=== PATIENT | male | born 1965 | race Two or more races ===

== ENCOUNTER 2018-08-16 08:19 | Day surgery (SDC) | payer OTHER | END 2018-08-16 13:00 | disposition home or self-care (01) | LOC: AMB-ENDOS 08:19 → CIR.AMB 12:15 → AMB-ENDOS 12:15 | DX: K57.32 Diverticulitis of large intestine without perforation or abscess without bleeding (principal); K64.1 Second degree hemorrhoids ==

== ENCOUNTER 2022-09-27 09:00 | Inpatient (IN) | payer OTHER ==
[~2022-09-27] VITALS: Ht 152.4 cm; Wt 911.7 kg
[2022-09-27] MEDS ORDERED: TENORMIN25 MG PO (11:04)
[2022-09-27] MEDS ORDERED: SEROQ PO (11:05)
[2022-09-27] MEDS ORDERED: CLONAZEPAM2 MG PO (11:05)
[2022-09-27] MEDS ORDERED: ZESTRIL40 M1 PO (11:05)
[2022-09-27] MEDS ORDERED: ZOLOFT100 MG PO (11:06)
[2022-09-27] MEDS ORDERED: [UNRECOGNIZED DRUG - REMARK] PO (11:06)
[2022-10-09] MEDS ORDERED: GABAPENTIN600 MG (08:54)
[2022-10-09] MEDS ORDERED: ALLOPURINOL100 MG (08:54)
[2022-10-09] MEDS ORDERED: LISINOPRIL-HCT1 EACH (08:55)
[2022-10-09] MEDS ORDERED: SYNTHROID112 MCG (08:55)
[2022-10-09] MEDS ORDERED: QUETIAPINE FUM100 MG (08:55)
[2022-10-09] MEDS ORDERED: FOLIC ACID1 MG (08:55)
[2022-10-09] MEDS ORDERED: FERROUS SULFAT325 MG (08:55)
[2022-10-09] MEDS ORDERED: VITAMIN B-121000 MCG (08:55)
[2022-11-19] MEDS ORDERED: GABAPENTIN300 MG PO (10:11)
[2022-11-19] MEDS ORDERED: ATENOLOL25 MG PO (10:11)
[2022-11-19] MEDS ORDERED: INTESTINEX680 M1 PO (10:11)
[2022-11-19] MEDS ORDERED: PANTOPRAZOLE SO40 MG PO (10:12)
[2022-11-19] MEDS ORDERED: INTEGRA F CAPS1 EACH PO (10:13)
[2022-11-19] MEDS ORDERED: LEVOTHYROXINE112 MCG PO (10:13)
== END 2022-11-20 17:08 | disposition home or self-care (01) | DRG 329 ==
LOC: SURG 10-03 07:00 → SURH 10-03 07:30 → O/R 10-03 07:30 → ICU 10-03 07:30 → SURG 10-03 09:00 → SURH 10-03 17:38 → O/R 10-12 10:57 → ICU 10-13 05:26 → SURH 11-01 18:23
PROVIDERS: ADMIT Colon & Rectal Surgery; ATTEND Colon & Rectal Surgery
PROC: 0DBP4ZZ Excision of Rectum, Percutaneous Endoscopic Approach (ICD-10-PCS; 2022-10-03)
PROC: 0DB84ZZ Excision of Small Intestine, Percutaneous Endoscopic Approach (ICD-10-PCS; 2022-10-03)
PROC: 07BB4ZZ Excision of Mesenteric Lymphatic, Percutaneous Endoscopic Approach (ICD-10-PCS; 2022-10-03)
PROC: 07BC4ZZ Excision of Pelvis Lymphatic, Percutaneous Endoscopic Approach (ICD-10-PCS; 2022-10-03)
PROC: 0DBM4ZZ Excision of Descending Colon, Percutaneous Endoscopic Approach (ICD-10-PCS; 2022-10-03)
PROC: 0DQM4ZZ Repair Descending Colon, Percutaneous Endoscopic Approach (ICD-10-PCS; 2022-10-03)
PROC: 0TQB4ZZ Repair Bladder, Percutaneous Endoscopic Approach (ICD-10-PCS; 2022-10-03)
PROC: 0WQF4ZZ Repair Abdominal Wall, Percutaneous Endoscopic Approach (ICD-10-PCS; 2022-10-03)
PROC: 0DJD8ZZ Inspection of Lower Intestinal Tract, Via Natural or Artificial Opening Endoscopic (ICD-10-PCS; 2022-10-03)
PROC: 0DTN4ZZ Resection of Sigmoid Colon, Percutaneous Endoscopic Approach (ICD-10-PCS; principal; 2022-10-03 07:00)
PROC: 4A12X4Z Monitoring of Cardiac Electrical Activity, External Approach (ICD-10-PCS; 2022-10-06)
PROC: BT1BZZZ Fluoroscopy of Bladder and Urethra (ICD-10-PCS; 2022-10-06)
PROC: 02HV33Z Insertion of Infusion Device into Superior Vena Cava, Percutaneous Approach (ICD-10-PCS; 2022-10-07)
PROC: BW211ZZ Computerized Tomography (CT Scan) of Abdomen and Pelvis using Low Osmolar Contrast (ICD-10-PCS; 2022-10-07)
PROC: 3E0536Z Introduction of Nutritional Substance into Peripheral Artery, Percutaneous Approach (ICD-10-PCS; 2022-10-10)
PROC: 0D1L074 Bypass Transverse Colon to Cutaneous with Autologous Tissue Substitute, Open Approach (ICD-10-PCS; 2022-10-11)
PROC: 5A1955Z Respiratory Ventilation, Greater than 96 Consecutive Hours (ICD-10-PCS; 2022-10-11)
PROC: 30233N1 Transfusion of Nonautologous Red Blood Cells into Peripheral Vein, Percutaneous Approach (ICD-10-PCS; 2022-10-15)
PROC: BW24ZZZ Computerized Tomography (CT Scan) of Chest and Abdomen (ICD-10-PCS; 2022-10-15)
PROC: BW211ZZ Computerized Tomography (CT Scan) of Abdomen and Pelvis using Low Osmolar Contrast (ICD-10-PCS; 2022-10-16)
PROC: 0T9130Z Drainage of Left Kidney with Drainage Device, Percutaneous Approach (ICD-10-PCS; 2022-10-18)
PROC: 0T9030Z Drainage of Right Kidney with Drainage Device, Percutaneous Approach (ICD-10-PCS; 2022-10-18)
PROC: BW2110Z Computerized Tomography (CT Scan) of Abdomen and Pelvis using Low Osmolar Contrast, Unenhanced and Enhanced (ICD-10-PCS; 2022-10-26)
PROC: 0JB70ZZ Excision of Back Subcutaneous Tissue and Fascia, Open Approach (ICD-10-PCS; 2022-11-03)
PROC: 0JB70ZZ Excision of Back Subcutaneous Tissue and Fascia, Open Approach (ICD-10-PCS; 2022-11-08)
PROC: BW211ZZ Computerized Tomography (CT Scan) of Abdomen and Pelvis using Low Osmolar Contrast (ICD-10-PCS; 2022-11-08)
PROC: 0T9130Z Drainage of Left Kidney with Drainage Device, Percutaneous Approach (ICD-10-PCS; 2022-11-14)
PROC: 0T9030Z Drainage of Right Kidney with Drainage Device, Percutaneous Approach (ICD-10-PCS; 2022-11-14)
PROC: 0JB70ZZ Excision of Back Subcutaneous Tissue and Fascia, Open Approach (ICD-10-PCS; 2022-11-15)
DX: C20 Malignant neoplasm of rectum (principal); J15.1 Pneumonia due to Pseudomonas; L89.154 Pressure ulcer of sacral region, stage 4; J95.821 Acute postprocedural respiratory failure; K56.2 Volvulus; K65.1 Peritoneal abscess; K91.89 Other postprocedural complications and disorders of digestive system; N17.9 Acute kidney failure, unspecified; N32.1 Vesicointestinal fistula; K57.20 Diverticulitis of large intestine with perforation and abscess without bleeding; Z16.24 Resistance to multiple antibiotics; K91.71 Accidental puncture and laceration of a digestive system organ or structure during a digestive system procedure; B96.1 Klebsiella pneumoniae [K. pneumoniae] as the cause of diseases classified elsewhere; N39.498 Other specified urinary incontinence; T83.022A Displacement of nephrostomy catheter, initial encounter; N13.9 Obstructive and reflux uropathy, unspecified; R35.89 Other polyuria; L89.152 Pressure ulcer of sacral region, stage 2; I10 Essential (primary) hypertension; E03.9 Hypothyroidism, unspecified; Z43.3 Encounter for attention to colostomy

== ENCOUNTER 2022-11-29 18:00 | Inpatient (IN) | payer OTHER ==
[~2022-11-29] VITALS: Ht 165.1 cm; Wt 95.3 kg
[~2022-11-29 18:00] MED LIST: ALLOPURINOL100 MG; ATENOLOL25 MG PO; CLONAZEPAM2 MG PO; FERROUS SULFAT325 MG; FOLIC ACID1 MG; GABAPENTIN300 MG PO; GABAPENTIN600 MG; INTEGRA F CAPS1 EACH PO; INTESTINEX680 M1 PO; LEVOTHYROXINE112 MCG PO; LISINOPRIL-HCT1 EACH; PANTOPRAZOLE SO40 MG PO; QUETIAPINE FUM100 MG; SEROQ PO; SYNTHROID112 MCG; TENORMIN25 MG PO; VITAMIN B-121000 MCG; ZESTRIL40 M1 PO; ZOLOFT100 MG PO; [UNRECOGNIZED DRUG - REMARK] PO
[2022-11-30] MEDS ORDERED: ABATINEX680 MG (15:01)
[2022-11-30] MEDS ORDERED: FOLIC ACID1 MG (15:01)
[2022-11-30] MEDS ORDERED: GABAPENTIN300 M2 (15:01)
[2022-11-30] MEDS ORDERED: PANTOPRAZOLE SO40 MG (15:01)
[2022-11-30] MEDS ORDERED: LEVOTHYROXINE112 MCG (15:01)
[2022-11-30] MEDS ORDERED: QUETIAPINE FUM100 MG (15:01)
[2022-11-30] MEDS ORDERED: FERROUS SULFAT325 MG (15:01)
[2022-11-30] MEDS ORDERED: SERTRALINE HCL100 MG (15:01)
[2022-11-30] MEDS ORDERED: VITAMIN B-121000 MCG (15:01)
[2022-11-30] MEDS ORDERED: CLONAZEPAM1 MG (15:01)
[2022-11-30] MEDS ORDERED: ALLOPURINOL100 MG (15:01)
[2022-12-18] MEDS ORDERED: ZESTRIL40 M1 PO (14:02)
[2022-12-18] MEDS ORDERED: QUETIAPINE FUM100 MG PO (14:03)
[2022-12-18] MEDS ORDERED: CLONAZEPAM1 MG PO (14:03)
[2022-12-18] MEDS ORDERED: TENORMIN25 MG PO (14:03)
[2022-12-18] MEDS ORDERED: LEVOTHYROXINE112 MCG PO (14:04)
[2022-12-18] MEDS ORDERED: ALLOPURINOL100 MG PO (14:04)
== END 2022-12-18 18:28 | disposition home or self-care (01) | DRG 871 ==
LOC: ER 18:00 → MEDI 11-30 14:41
PROVIDERS: ADMIT Internal Medicine; ATTEND Internal Medicine
PROC: 0HD6XZZ Extraction of Back Skin, External Approach (ICD-10-PCS; principal; 2022-12-01)
PROC: 0HD6XZZ Extraction of Back Skin, External Approach (ICD-10-PCS; 2022-12-06)
PROC: 2W15X6Z Compression of Back using Pressure Dressing (ICD-10-PCS; 2022-12-06)
PROC: 0JB73ZZ Excision of Back Subcutaneous Tissue and Fascia, Percutaneous Approach (ICD-10-PCS; 2022-12-13)
DX: A41.9 Sepsis, unspecified organism (principal); L89.154 Pressure ulcer of sacral region, stage 4; N39.0 Urinary tract infection, site not specified; L08.9 Local infection of the skin and subcutaneous tissue, unspecified; B95.2 Enterococcus as the cause of diseases classified elsewhere; B96.89 Other specified bacterial agents as the cause of diseases classified elsewhere; Z20.822 Contact with and (suspected) exposure to COVID-19; E03.9 Hypothyroidism, unspecified; I10 Essential (primary) hypertension; Z74.01 Bed confinement status; Z93.6 Other artificial openings of urinary tract status

== ENCOUNTER 2023-02-28 08:24 | Outpatient (CLI) | payer OTHER ==
[~2023-02-28 08:24] MED LIST changes: +ABATINEX680 MG; +ALLOPURINOL100 MG PO; +CLONAZEPAM1 MG; +CLONAZEPAM1 MG PO; +GABAPENTIN300 M2; +LEVOTHYROXINE112 MCG; +PANTOPRAZOLE SO40 MG; +QUETIAPINE FUM100 MG PO; +SERTRALINE HCL100 MG
== END 2023-02-28 08:32 | disposition home or self-care (01) ==
LOC: RX STUDY 08:24
PROVIDERS: ATTEND Colon & Rectal Surgery
DX: K57.20 Diverticulitis of large intestine with perforation and abscess without bleeding (principal); N32.1 Vesicointestinal fistula
CPT/HCPCS: 74220; 74430; A9698

== ENCOUNTER 2023-07-11 08:48 | Outpatient (CLI) | payer OTHER | END 2023-07-11 08:58 | disposition home or self-care (01) | LOC: TOM 08:48 | PROVIDERS: ATTEND Colon & Rectal Surgery | DX: K57.20 Diverticulitis of large intestine with perforation and abscess without bleeding (principal); C20 Malignant neoplasm of rectum ==

== ENCOUNTER 2025-01-14 16:33 | Inpatient (IN) | payer OTHER ==
[~2025-01-14] VITALS: Ht 172.7 cm; Wt 99.8 kg
[~2025-01-14 16:33] MED LIST changes: +GRALISE600 MG; +ZESTRIL2.5 MG
--- NOTE | 2025-01-14 16:41 | NUR ---
SE RECIBE PTE EN AMBULANCIA ALERTA Y ORIENTADO X3, REFIERE DOLOR ABDOMINAL Y ARDOR AL ORINAR. REFIERE TIENE CORTNEY FISTULA ABDOMINAL. PTE DEL .SE SANDRA DINO Y SE UBICA
[2025-01-14] MEDS ORDERED: FAMOTIDINE/PF 20 MG/2 ML VIAL IV ONE (17:30)
[2025-01-14] MEDS ORDERED: ONDANSETRON HCL 2 MG/ML VIAL IV ONE (17:30)
[2025-01-14] MEDS ORDERED: 0.9 % SODIUM CHLORIDE 500 ML IV ONE (17:30)
--- NOTE | 2025-01-14 18:16 | NUR ---
SE ORIENTA A PACIENTE SOBRE TX MEDICO, REFIERE ENTENDER. SE REALIZAN MUESTRAS DE LABORATORIO BAJO MEDIDAS ASEPTICAS. SE ADMINISTRAN MEDICAMENTOS TOMASA ORDEN MEDICA. SE COORDINA CT. PENDIENTE RE-EVALUACION MEDICA.
[2025-01-14 18:19] LABS: BASO % 0.2 % (0.1-1.2); EOS # 0.01 (0.04-0.54); EOS % 0.1 % (0.7-7.0); LYMPH # 1.12 (1.18-3.74); LYMPH % 6.2 % (19.3-53.1); MEAN PLATELET VOLUME 9.30 fl (9.4-12.4); MONO # 1.58 (0.24-0.82); MONO % 8.8 % (4.7-12.5); NEUT # 15.01 (1.56-6.13); NEUT % 83.1 % (34.0-71.1); RED CELL DISTRIBUTION WIDTH 13.0 % (11.6-14.4)
[2025-01-14 18:43] LABS: ALT/SGPT 22.0 U/L (12-78); AST/SGOT 11.0 U/L (15-37); BILIRUBIN TOTAL 0.61 mg/dL (0.3-1.2); BUN CREA RATIO 26.0 (7.0-25.0); CREATININE SERUM 1.22 mg/dL (0.70-1.30); GFR 60.8; GLOBULINA 4.8 G/DL (2.4-3.5); GLUCOSE FASTING 130.0 mg/dL (65-100); OSMOLALITY SERUM 277.0 MOSM/KG (275-295)
[2025-01-14] MEDS ORDERED: PIPERACILLIN/TAZOBACTAM SODIUM 3.375 GM VIAL IV ONE (19:45)
[2025-01-14] MEDS ORDERED: FAMOTIDINE/PF 20 MG in 0.9 % SODIUM CHLORIDE 8 ML IV PUSH SCH (20:21)
--- NOTE | 2025-01-14 20:29 | NUR ---
SE ORIENTA PTE SOBRE INSERCION DE NGT EL CUAL SE REALIZA BAJO MEDIDAS ASEPTICAS EN YONY RT SE CONECTA @ LIS,SE OBSERVAN RESIDUOS DE COMIDA,SE RE-CANALIZA PTE.SE RANDALL BAJO OBSERVACION POR CAMBIOS.
[2025-01-14] MEDS ORDERED: MORPHINE SULFATE 4 MG/ML CARTRIDGE IV PRN (20:30)
[2025-01-14] MEDS ORDERED: ONDANSETRON HCL 4 MG in 0.9 % SODIUM CHLORIDE 50 ML IV PRN (20:30)
[2025-01-14] MEDS ORDERED: 0.9 % SODIUM CHLORIDE 1,000 ML IV SCH (20:30)
[2025-01-14] MEDS ORDERED: ENALAPRILAT DIHYDRATE 1.25 MG/ML VIAL IV PRN (20:30)
[2025-01-14 22:25] LABS: INR 1.1
[2025-01-14 22:58] LABS: URINE APPEARANCE Cloudy; URINE BILIRRUBIN Negative (NEGATIVE); URINE BLOOD Small; URINE COLOR Yellow; URINE GLUCOSE Negative (NEGATIVE); URINE KETONE Negative (NEGATIVE); URINE LEUKOCYTE Large; URINE NITRATE Positive; URINE PROTEIN 30 (NEGATIVE); URINE UROBILINOGEN 0.2 E.U./dl
[2025-01-14 23:01] LABS: URINE BACTERIA 1735.0 uL (0.0-1933); URINE EPITHELIAL CELLS 3.5 uL (0.0-38.8); URINE RBC 2.0 uL (0.0-20.8); URINE WBC 2758.8 uL (0.0-23.2)
[2025-01-14 23:05] LABS: URINE CAST 0.58 uL (0.0-1.40)
[2025-01-15] MEDS ORDERED: PIPERACILLIN/TAZOBACTAM SODIUM 3.375 GM in DEXTROSE 5 % IN WATER 100 ML IV SCH
[2025-01-15 08:44] VITALS: BP 108/74; O2SAT 97
[2025-01-15 16:00] VITALS: BP 118/67; O2SAT 96
[2025-01-16 00:52] VITALS: BP 123/76; O2SAT 96
[2025-01-16 07:32] LABS: BASO % 0.6 % (0.1-1.2); EOS # 0.06 (0.04-0.54); EOS % 0.3 % (0.7-7.0); LYMPH # 1.21 (1.18-3.74); LYMPH % 6.9 % (19.3-53.1); MEAN PLATELET VOLUME 9.50 fl (9.4-12.4); MONO # 1.92 (0.24-0.82); MONO % 10.9 % (4.7-12.5); NEUT # 13.77 (1.56-6.13); NEUT % 78.1 % (34.0-71.1); RED CELL DISTRIBUTION WIDTH 13.4 % (11.6-14.4)
[2025-01-16 07:58] LABS: ALT/SGPT 19.0 U/L (12-78); AST/SGOT 13.0 U/L (15-37); BILIRUBIN TOTAL 0.98 mg/dL (0.3-1.2); BUN CREA RATIO 21.0 (7.0-25.0); CREATININE SERUM 0.96 mg/dL (0.70-1.30); GFR 80.17; GLOBULINA 3.7 G/DL (2.4-3.5); GLUCOSE FASTING 104.0 mg/dL (65-100); OSMOLALITY SERUM 284.0 MOSM/KG (275-295)
[2025-01-16 08:37] VITALS: BP 115/79; O2SAT 95
[2025-01-16] MEDS ORDERED: levoFLOXacin IN DEXTROSE 5 % 150 ML IV SCH (12:00)
[2025-01-16 17:38] VITALS: BP 116/70; O2SAT 96
[2025-01-17 01:48] VITALS: BP 106/72; O2SAT 97
[2025-01-17 08:17] VITALS: BP 137/86; O2SAT 94
[2025-01-17] MEDS ORDERED: DIATRIZOATE MEGLUMINE, SODIUM 30 ML BOTTLE PO NR (10:30)
[2025-01-17 16:00] VITALS: BP 121/79; O2SAT 96
[2025-01-18 00:57] VITALS: BP 126/81; O2SAT 97
[2025-01-18] MEDS ORDERED: MORPHINE SULFATE 4 MG/ML CARTRIDGE IV PRN (01:30)
[2025-01-18 08:00] VITALS: BP 128/79; O2SAT 98
[2025-01-18 16:00] VITALS: BP 149/90; O2SAT 95
[2025-01-19] VITALS: BP 127/72; O2SAT 95
[2025-01-19 06:32] LABS: BASO % 0.6 % (0.1-1.2); EOS # 0.04 (0.04-0.54); EOS % 0.3 % (0.7-7.0); LYMPH # 1.22 (1.18-3.74); LYMPH % 10.6 % (19.3-53.1); MEAN PLATELET VOLUME 9.50 fl (9.4-12.4); MONO # 0.73 (0.24-0.82); MONO % 6.3 % (4.7-12.5); NEUT # 9.09 (1.56-6.13); NEUT % 78.7 % (34.0-71.1); RED CELL DISTRIBUTION WIDTH 13.4 % (11.6-14.4)
[2025-01-19 07:05] LABS: BUN CREA RATIO 23.0 (7.0-25.0); CREATININE SERUM 0.8 mg/dL (0.70-1.30); GFR 98.94; GLUCOSE FASTING 80.0 mg/dL (65-100); OSMOLALITY SERUM 288.0 MOSM/KG (275-295)
[2025-01-19 07:36] LABS: LYMPHOCYTE MAN 20.0 %; MONOCYTE MAN 1.0 %; NEUTROPHILS MAN 76.0 %
[2025-01-19 08:00] VITALS: BP 135/89; O2SAT 97
[2025-01-19 16:00] VITALS: BP 121/73; O2SAT 97
[2025-01-19] MEDS ORDERED: POTASSIUM PHOS,M-BASIC-D-BASIC 15 MM in 0.9 % SODIUM CHLORIDE 250 ML IV NR (18:00)
[2025-01-19] MEDS ORDERED: MIDAZOLAM HCL 2 MG/2 ML VIAL IV PUSH ONE (18:15)
[2025-01-19] MEDS ORDERED: fentaNYL CITRATE 50 MCG/ML AMPUL IV PUSH ONE (18:15)
[2025-01-20 01:25] VITALS: BP 114/80; O2SAT 97
[2025-01-20 08:00] VITALS: BP 135/87; O2SAT 96
[2025-01-20 17:16] VITALS: BP 150/97; O2SAT 97
[2025-01-21 02:10] VITALS: BP 137/85; O2SAT 97
[2025-01-21 08:00] VITALS: BP 144/94; O2SAT 96
[2025-01-21 17:28] VITALS: BP 131/83; O2SAT 99
[2025-01-22 01:30] VITALS: BP 135/89; O2SAT 97
[2025-01-22 07:26] LABS: BASO % 0.4 % (0.1-1.2); EOS # 0.07 (0.04-0.54); EOS % 0.5 % (0.7-7.0); LYMPH # 1.44 (1.18-3.74); LYMPH % 11.2 % (19.3-53.1); MEAN PLATELET VOLUME 9.10 fl (9.4-12.4); MONO # 0.94 (0.24-0.82); MONO % 7.3 % (4.7-12.5); NEUT # 10.10 (1.56-6.13); NEUT % 78.6 % (34.0-71.1); RED CELL DISTRIBUTION WIDTH 13.1 % (11.6-14.4)
[2025-01-22 08:00] VITALS: BP 118/79; O2SAT 96
[2025-01-22 08:10] LABS: ALT/SGPT 36.0 U/L (12-78); AST/SGOT 24.0 U/L (15-37); BILIRUBIN TOTAL 0.46 mg/dL (0.3-1.2); BUN CREA RATIO 12.0 (7.0-25.0); CREATININE SERUM 0.84 mg/dL (0.70-1.30); GFR 93.52; GLOBULINA 4.3 G/DL (2.4-3.5); GLUCOSE FASTING 118.0 mg/dL (65-100); OSMOLALITY SERUM 278.0 MOSM/KG (275-295)
[2025-01-22] MEDS ORDERED: PIPERACILLIN/TAZOBACTAM SODIUM 4.5 GM VIAL IV SCH (17:00)
[2025-01-22 18:12] VITALS: BP 133/85; O2SAT 97
[2025-01-23 02:15] VITALS: BP 137/80; O2SAT 97
[2025-01-23 07:00] VITALS: BP 122/85; O2SAT 97
[2025-01-23 16:00] VITALS: BP 121/78; O2SAT 96
[2025-01-24 01:53] VITALS: BP 117/75; O2SAT 96
[2025-01-24 08:00] VITALS: BP 116/75; BP 120/70; O2SAT 95; O2SAT 97
[2025-01-24 09:01] LABS: BASO % 0.4 % (0.1-1.2); EOS # 0.05 (0.04-0.54); EOS % 0.5 % (0.7-7.0); LYMPH # 1.36 (1.18-3.74); LYMPH % 12.5 % (19.3-53.1); MEAN PLATELET VOLUME 8.90 fl (9.4-12.4); MONO # 0.97 (0.24-0.82); MONO % 8.9 % (4.7-12.5); NEUT # 8.30 (1.56-6.13); NEUT % 76.5 % (34.0-71.1); RED CELL DISTRIBUTION WIDTH 13.1 % (11.6-14.4)
[2025-01-24] MEDS ORDERED: FOLIC ACID 1 MG TABLET PO SCH (10:17)
[2025-01-24] MEDS ORDERED: CYANOCOBALAMIN (VITAMIN B-12) 1,000 MCG TABLET PO NR (10:40)
[2025-01-24] MEDS ORDERED: LEVOTHYROXINE SODIUM 112 MCG TABLET PO NR (10:40)
[2025-01-25 00:58] VITALS: BP 126/73; O2SAT 97
[2025-01-25] MEDS ORDERED: LEVOTHYROXINE SODIUM 112 MCG TABLET PO SCH (06:00)
[2025-01-25] MEDS ORDERED: CYANOCOBALAMIN (VITAMIN B-12) 1,000 MCG TABLET PO SCH (09:00)
[2025-01-25] MEDS ORDERED: FAMOTIDINE/PF 20 MG in 0.9 % SODIUM CHLORIDE 8 ML IV PUSH SCH (09:00)
[2025-01-25 10:04] VITALS: BP 133/88; O2SAT 96
[2025-01-25 16:00] VITALS: BP 126/89; O2SAT 96
[2025-01-26 01:09] VITALS: BP 147/84; O2SAT 98
[2025-01-26 06:30] LABS: BASO % 0.7 % (0.1-1.2); EOS # 0.12 (0.04-0.54); EOS % 1.1 % (0.7-7.0); LYMPH # 1.60 (1.18-3.74); LYMPH % 15.0 % (19.3-53.1); MEAN PLATELET VOLUME 8.80 fl (9.4-12.4); MONO # 1.15 (0.24-0.82); MONO % 10.8 % (4.7-12.5); NEUT # 7.63 (1.56-6.13); NEUT % 71.5 % (34.0-71.1); RED CELL DISTRIBUTION WIDTH 13.1 % (11.6-14.4)
[2025-01-26 07:21] LABS: ALT/SGPT 28.0 U/L (12-78); AST/SGOT 14.0 U/L (15-37); BILIRUBIN TOTAL 0.27 mg/dL (0.3-1.2); BUN CREA RATIO 9.0 (7.0-25.0); CREATININE SERUM 1.16 mg/dL (0.70-1.30); GFR 64.44; GLOBULINA 4.1 G/DL (2.4-3.5); GLUCOSE FASTING 99.0 mg/dL (65-100); OSMOLALITY SERUM 275.0 MOSM/KG (275-295)
[2025-01-26 08:00] VITALS: BP 125/83
[2025-01-26 16:00] VITALS: BP 117/77; O2SAT 98
[2025-01-27 01:15] VITALS: BP 123/73; O2SAT 98
[2025-01-27 08:46] VITALS: BP 120/87; O2SAT 97
[2025-01-27] MEDS ORDERED: POLYETHYLENE GLYCOL 3350 17 GM BLIST.PACK PO NR (11:00)
[2025-01-27 16:00] VITALS: BP 128/85; O2SAT 97
[2025-01-28] MEDS ORDERED: POLYETHYLENE GLYCOL 3350 17 GM BLIST.PACK PO SCH (09:00)
== END 2025-01-27 19:34 | disposition home or self-care (01) | DRG 356 ==
LOC: ER 16:33 → SURH 20:42 → SEC-K 22:08 → SURH 01-15 01:01
PROVIDERS: General Practice; Internal Medicine; Internal Medicine Nephrology; Surgery; ADMIT Colon & Rectal Surgery; ATTEND Colon & Rectal Surgery
PROC: 0D9670Z Drainage of Stomach with Drainage Device, Via Natural or Artificial Opening (ICD-10-PCS; 2025-01-14)
PROC: BW21YZZ Computerized Tomography (CT Scan) of Abdomen and Pelvis using Other Contrast (ICD-10-PCS; 2025-01-14)
PROC: 8E0ZXY6 Isolation (ICD-10-PCS; 2025-01-16)
PROC: 0DP07UZ Removal of Feeding Device from Upper Intestinal Tract, Via Natural or Artificial Opening (ICD-10-PCS; 2025-01-17)
PROC: 0DH67UZ Insertion of Feeding Device into Stomach, Via Natural or Artificial Opening (ICD-10-PCS; 2025-01-17)
PROC: BW21YZZ Computerized Tomography (CT Scan) of Abdomen and Pelvis using Other Contrast (ICD-10-PCS; 2025-01-17)
PROC: 0JB70ZZ Excision of Back Subcutaneous Tissue and Fascia, Open Approach (ICD-10-PCS; principal; 2025-01-19)
PROC: 0W9F30Z Drainage of Abdominal Wall with Drainage Device, Percutaneous Approach (ICD-10-PCS; 2025-01-19)
PROC: 0WPF30Z Removal of Drainage Device from Abdominal Wall, Percutaneous Approach (ICD-10-PCS; 2025-01-22)
PROC: BW21ZZZ Computerized Tomography (CT Scan) of Abdomen and Pelvis (ICD-10-PCS; 2025-01-23)
DX: K43.3 Parastomal hernia with obstruction, without gangrene (principal); L89.153 Pressure ulcer of sacral region, stage 3; L76.34 Postprocedural seroma of skin and subcutaneous tissue following other procedure; L02.211 Cutaneous abscess of abdominal wall; C20 Malignant neoplasm of rectum; E87.1 Hypo-osmolality and hyponatremia; G82.20 Paraplegia, unspecified; K42.9 Umbilical hernia without obstruction or gangrene; K29.60 Other gastritis without bleeding; D64.9 Anemia, unspecified; L08.89 Other specified local infections of the skin and subcutaneous tissue; D72.829 Elevated white blood cell count, unspecified; E03.9 Hypothyroidism, unspecified; Z93.3 Colostomy status; B96.5 Pseudomonas (aeruginosa) (mallei) (pseudomallei) as the cause of diseases classified elsewhere; B96.1 Klebsiella pneumoniae [K. pneumoniae] as the cause of diseases classified elsewhere; B95.2 Enterococcus as the cause of diseases classified elsewhere